=== PATIENT | female | born 1950 | race Caucasian/White ===

== ENCOUNTER 2017-12-16 06:58 | Day surgery (SDC) | payer MEDICARE, OTHER ==
[2017-12-16] MEDS ORDERED: PROPOFOL 10 MG/ML VIAL IV ONE (06:59)
[2017-12-16] MEDS ORDERED: LIDOCAINE 2% MDV (20MG/ML) 20ML VIAL IV ONE (06:59)
--- NOTE | 2017-12-16 14:00 | Operative Note ---
DATE OF SURGERY: OPERATION: COLONOSCOPY with cold snare and cold forceps polypectomies. PREOPERATIVE DIAGNOSIS: Family history of colon cancer. POSTOPERATIVE DIAGNOSIS: Colon polyps. PREPARATION QUALITY: Excellent. ESTIMATED BLOOD LOSS: Minimum. SPECIMENS: Cecal polyp, ascending colon polyp, transverse colon polyp, and sigmoid polyp. COMPLICATIONS: None apparent. PROCEDURE: After informed consent was obtained from the patient, she was placed in the left lateral decubitus position in the endoscopy suite, sedated and monitored by the department of anesthesia. Digital rectal exam was unremarkable. A well-lubricated [id number] colonoscope was inserted into the rectum and advanced to the cecum. Preparation quality was excellent. The cecum and ileocecal valve were identified as well as the appendiceal orifice. In the cecum, there was a sessile polyp approximately 1.1 cm in diameter which was removed in piecemeal fashion with a cold snare. The polyp was retrieved. There was minimal bleeding at the site. The ascending colon revealed a 4-5 mm sessile polyp removed with a cold snare, which was retrieved as well. The remainder of the cecum and ascending colon were unremarkable. There was a diminutive transverse colon polyp removed with a cold forceps. The remainder of the transverse colon and descending colon were unremarkable. The sigmoid colon revealed a 4-5 mm sessile polyp removed with a cold snare. The polyp was retrieved without difficulty. Minimal bleeding was noted. The rectum was unremarkable in forward and J-turn views. The endoscope was straightened, the rectal ampulla deflated, and the endoscope was removed. RECOMMENDATIONS: I would suggest the patient resume her medications and diet. She should undergo repeat exam in 3 years. As always, thank you for allowing me to participate in the healthcare of your patients. CC: DO PAULO Olmstead
== END 2017-12-16 08:45 | disposition home or self-care (01) ==
LOC: HOP 06:58
PROVIDERS: ATTEND Internal Medicine Gastroenterology
DX: Z12.11 Encounter for screening for malignant neoplasm of colon (principal); Z80.0 Family history of malignant neoplasm of digestive organs; D12.0 Benign neoplasm of cecum; D12.2 Benign neoplasm of ascending colon; D12.5 Benign neoplasm of sigmoid colon; D12.3 Benign neoplasm of transverse colon; I10 Essential (primary) hypertension; E78.00 Pure hypercholesterolemia, unspecified; G35 Multiple sclerosis

== ENCOUNTER 2019-03-09 12:02 | Day surgery (SDC) | payer MEDICARE, OTHER ==
[2019-03-09] MEDS ORDERED: LIDOCAINE 2% MDV (20MG/ML) 20ML VIAL IV ONE (12:03)
[2019-03-09] MEDS ORDERED: PROPOFOL 10 MG/ML VIAL IV ONE (12:03)
--- NOTE | 2019-03-10 15:30 | Operative Note ---
OPERATION: COLONOSCOPY. PREOPERATIVE DIAGNOSIS: Personal history of colon polyps. POSTOPERATIVE DIAGNOSIS: Normal exam. PREPARATION QUALITY: Good to excellent. ESTIMATED BLOOD LOSS: None. SPECIMENS: None. COMPLICATIONS: None apparent. PROCEDURE: After informed consent was obtained from the patient, she was placed in the left lateral decubitus position in the endoscopy suite, sedated and monitored by the department of anesthesia. Digital rectal exam was unremarkable. A well-lubricated [id number] colonoscope was inserted into the rectum and advanced to the cecum. The cecum, cecal bulb, ileocecal valve, ascending colon, transverse colon, descending colon, sigmoid colon, and rectum were free of inflammatory changes, mass lesions, or polyps. Forward and J-turn views of the rectum and anorectum were unremarkable. The endoscope was straightened, the rectal ampulla deflated, and the endoscope was removed. RECOMMENDATIONS: I would suggest the patient resume her medications and diet, undergo repeat exam in 5 years. As always, thank you for allowing me to participate in the healthcare of your patients. PAULO
== END 2019-03-09 13:33 | disposition home or self-care (01) ==
LOC: HOP 12:02
PROVIDERS: ATTEND Internal Medicine Gastroenterology
DX: Z12.11 Encounter for screening for malignant neoplasm of colon (principal); Z86.010 Personal history of colon polyps; J45.909 Unspecified asthma, uncomplicated; I10 Essential (primary) hypertension; G35 Multiple sclerosis